=== PATIENT | male | born 1970 | race Caucasian/White ===

== ENCOUNTER → 2017-04-03 | Outpatient (CLI) | payer OTHER | END | disposition home or self-care (01) | LOC: ECHO 09:34 | DX: I42.9 Cardiomyopathy, unspecified (principal); I48.91 Unspecified atrial fibrillation; I07.1 Rheumatic tricuspid insufficiency | CPT/HCPCS: 93306 ==

== ENCOUNTER → 2020-03-28 | Outpatient (CLI) | payer OTHER ==
[2014-03-25 11:10] VITALS: BP 102/79
[~2020-03-28] MED LIST: AMIO200T6 PO; APIX5TAB PO; CARV6.25 PO; FURO-68 PO; LOSA-73 PO; LOSA1TAB22 PO; PERFLUTREN PROTEIN-A MICROSPHR 0.22 MG/ML 3 ML VIAL. IV ONE; POTA20TA4 PO
--- NOTE | 2020-03-28 17:59 | CARD ---
MR#: [id number] Date of Study: 03/28/2020 Ordering Physician: IRENE COLÓN, Referring Physician: IRENE COLÓN, Tech: Phylicia Mueller [facility] APPROVED REPORT EXAM: Two-dimensional and M-mode echocardiogram with Doppler and color Doppler. Other Information Quality : Technically LimitedHR: 72bpm Rhythm : NSRTechnically limited study due to body habitus. INDICATION Hypertension/HCVD Echo Enhancing Agent Indication: Endocardial border delineation Agent/Amount Used: Optison 3mL RISK FACTORS Hypertension Obesity Hyperlipidemia 2D DIMENSIONS Left Atrium(2D)5.2 (1.6-4.0cm)IVSd1.5 (0.7-1.1cm) Aortic Root(2D)3.7 (2.0-3.7cm)LVDd5.1 (3.9-5.9cm) LVOT Diameter2.6 (1.8-2.4cm)PWd1.4 (0.7-1.1cm) LVDs3.0 (2.5-4.0cm)FS (%) 40.2 % SV87.3 mlLVEF(%)70.6 (>50%) Aortic Valve AoV Peak Andres.112.4cm/sAoV VTI26.2cm AO Peak GR.5.1mmHgLVOT Peak Andres.13.5cm/s LVOT VTI 1.87cmAO Mean GR.3mmHg GIULIANO (VMAX)0.25vb5JRF (VTI)0.38cm2 Mitral Valve MV E Edmzzgpd95.0cm/sMV A Jdcxpvap33.4cm/s E/A Ratio1.3 TDI E/Lateral E'5.8E/Medial E'7.7 Tricuspid Valve TR P. Vlnfliwf246up/sTR Peak Gr.18mmHg LEFT VENTRICLE The left ventricle is normal size. There is mild concentric left ventricular hypertrophy. The systoli c function is low normal. EF 50% There is normal LV segmental wall motion. Tissue Doppler imaging rev eals mild left ventricular diastolic dysfunction. No left ventricle thrombus noted on this study. The re is no ventricular septal defect visualized. RIGHT VENTRICLE The right ventricle is normal size. There is normal right ventricular wall thickness. The right ventr icular systolic function is normal. ATRIA The left atrium is borderline dilated. The right atrium size is normal. The interatrial septum is int act with no evidence for an atrial septal defect or patent foramen ovale as noted on 2-D or Doppler i maging. AORTIC VALVE The aortic valve is normal in structure and function. Doppler and Color Flow revealed no significant aortic regurgitation. There is no significant aortic valvular stenosis. MITRAL VALVE The mitral valve is normal in structure and function. There is no evidence of mitral valve prolapse. There is no mitral valve stenosis. Doppler and Color-flow revealed mild mitral regurgitation. TRICUSPID VALVE The tricuspid valve is normal in structure and function. Doppler and Color Flow revealed trace to mil d tricuspid regurgitation. Estimated PAP 23 mmHg. There is no tricuspid valve stenosis. PULMONIC VALVE Doppler and Color Flow revealed no pulmonic valvular regurgitation. There is no pulmonic valvular ruperto nosis. GREAT VESSELS The aortic root is normal in size. The ascending aorta is normal in size. The IVC is normal in size a nd collapses >50% with inspiration. PERICARDIAL EFFUSION There is no evidence of significant pericardial effusion. Critical Notification Critical Value: No <Conclusion> The systolic function is low normal. EF 50% There is normal LV segmental wall motion. Doppler and Color Flow revealed trace to mild tricuspid regurgitation. Estimated PAP 23 mmHg. Technically difficult study. Signed by : Kike Mckeon, Electronically Approved : 03/28/2020 17:58:59
== END ==
LOC: ECHO 07:43
PROVIDERS: ATTEND Internal Medicine Cardiovascular Disease
DX: I08.1 Rheumatic disorders of both mitral and tricuspid valves (principal); I42.9 Cardiomyopathy, unspecified
CPT/HCPCS: C8929; Q9956